=== PATIENT | female | born 1995 | race Caucasian/White ===

== ENCOUNTER 2023-02-12 12:41 | Emergency (ER) | payer MEDICAID ==
[~2023-02-12] VITALS: Ht 162.6 cm; Wt 59.0 kg
[2023-02-12 12:46] VITALS: BP_SYST 100; PULSE 77; RESP 18; TEMP 98.3; O2SAT 99
[2023-02-12] MEDS ORDERED: AMOX875T2 PO (13:05)
[2023-02-12 13:43] VITALS: BP_SYST 111; PULSE 77; RESP 18; TEMP 98.3; O2SAT 99
== END 2023-02-12 13:40 | disposition home or self-care (01) ==
LOC: SED 12:41
DX: H66.91 Otitis media, unspecified, right ear (principal); H92.01 Otalgia, right ear; Z79.899 Other long term (current) drug therapy
CPT/HCPCS: 99283